=== PATIENT | male | born 1995 | race Caucasian/White ===

== ENCOUNTER → 2021-11-07 | Outpatient (CLI) | payer BC ==
--- NOTE | 2021-11-07 13:45 | Diagnostic Imaging Report ---
PROCEDURE: US Scrotum. TECHNIQUE: Multiple real-time grayscale images were obtained over the scrotum in various projections bilaterally. INDICATION: Testicular pain. FINDINGS: Right testicle measures 5.1 x 2.0 x 3.0 cm, and the left testicle measures 5.1 x 2.4 x 2.9 cm. Both testes show fairly homogeneous echotexture. No discrete testicular mass is identified. There is blood flow to both testes. Right epididymal head contains two small cysts, largest 5 mm in size. Left epididymis is unremarkable apart from approximately 6 mm cyst in the region of the tail. Trace left hydrocele is noted. No right-sided hydrocele is seen. There is no varicocele. IMPRESSION: 1. No evidence of testicular mass or vascular compromise. 2. Small epididymal cysts bilaterally as well as a small left hydrocele. The study is otherwise unremarkable. Dictated by: Dictated on workstation # [id number]
== END ==
LOC: RAD 12:08
PROVIDERS: ATTEND Nurse Practitioner Family
DX: N50.3 Cyst of epididymis (principal); N43.3 Hydrocele, unspecified
CPT/HCPCS: 76870

== ENCOUNTER → 2021-11-13 | Outpatient (CLI) | payer BC ==
--- NOTE | 2021-11-13 09:10 | Diagnostic Imaging Report ---
PROCEDURE: US Gallbladder. TECHNIQUE: Multiple real-time grayscale images were obtained over the right upper quadrant in various projections. INDICATION: Right upper quadrant abdominal pain FINDINGS: Grayscale imaging of the gallbladder reveals no intraluminal filling defect. There is no gallbladder wall thickening or pericholecystic fluid. No intra or extrahepatic biliary ductal dilatation is identified. No pancreatic, right renal, abdominal aortic or inferior vena caval abnormality is documented. No ascites was noted. IMPRESSION: Unremarkable right upper quadrant abdominal ultrasound. Dictated by: Dictated on workstation # [id number]
== END ==
LOC: RAD 07:15
PROVIDERS: ATTEND Family Medicine
DX: R10.11 Right upper quadrant pain (principal)
CPT/HCPCS: 76705

== ENCOUNTER → 2021-11-23 | Outpatient (CLI) | payer BC ==
[~2021-11-23] MED LIST: CATHETER FLUSH 10 ML SYR IV PRN
--- NOTE | 2021-11-23 12:21 | Diagnostic Imaging Report ---
RADIOPHARMACEUTICAL: 5.41 mCi Tc-99m Choletec IV INDICATION: Right upper quadrant abdominal pain TECHNIQUE: Anterior dynamic imaging for 1 hour. Additional 60 minutes of imaging was performed after the patient ingested an 8 ounce can of Ensure. FINDINGS: There is homogenous uptake throughout the liver. The gallbladder is visualized at 40minutes and small bowel at 15minutes. After ingesting an 8 ounce can of Ensure, there is abnormally low gallbladder ejection fraction which is calculated to be 7.7%. IMPRESSION: 1. No evidence of acute cholecystitis or common duct obstruction. 2. Abnormally low GBEF of 7.7%. This can be seen with underlying biliary dyskinesia versus chronic acalculous cholecystitis. Dictated by: Dictated on workstation # [id number]
== END ==
LOC: CARD 10:00
PROVIDERS: ATTEND Family Medicine
DX: R10.11 Right upper quadrant pain (principal)
CPT/HCPCS: 78227; A9537

== ENCOUNTER 2021-12-04 11:33 | Outpatient (CLI) | payer BC ==
[~2021-12-04] VITALS: Ht 175.3 cm; Wt 74.0 kg
[2021-12-04] MEDS ORDERED: FINA1TAB16 PO (11:54)
[2021-12-06] MEDS ORDERED: ACHD5005 PO (11:04)
== END 2021-12-04 12:23 | disposition home or self-care (01) ==
LOC: PREOP 11:33
PROVIDERS: ATTEND Surgery
DX: Z01.818 Encounter for other preprocedural examination (principal)

== ENCOUNTER 2021-12-06 08:11 | Day surgery (SDC) | payer BC ==
[~2021-12-06] VITALS: Ht 175.3 cm; Wt 74.0 kg
[2021-12-06] VITALS (12 sets, daily range): BP systolic 112–137; BP diastolic 66–97
[~2021-12-06 08:11] MED LIST changes: -CATHETER FLUSH 10 ML SYR IV PRN; +FINA1TAB16 PO
--- NOTE | 2021-12-06 08:24 | Progress Note-Pre Operative ---
Pre-Operative Progress Note H&P Reviewed The H&P was reviewed, patient examined and no changes noted. Time Seen by Provider: 08:23 Date H&P Reviewed: Dec 06, 2021 Time H&P Reviewed: 08:23 Pre-Operative Diagnosis: Biliary Dyskinesia GONZALO SANTILLAN DO Dec 06, 2021 08:24
[2021-12-06] MEDS: LACTATED RINGERS 1,000 ML IV PRN ×2 (08:48→10:40)
[2021-12-06] MEDS ORDERED: ceFAZolin 2 GM IV Premixed 50 ML ONE (08:49)
[2021-12-06] MEDS ORDERED: ROCURONIUM 10 MG/ML 5 ML SYRINGE IV ONE (09:12)
[2021-12-06] MEDS ORDERED: SEVOFLURANE (ULTANE) 15 ML INHAL SOLN ONE ×2 (09:12→10:58)
[2021-12-06] MEDS ORDERED: LIDOCAINE PF 2% 5 ML (XYLOCAINE) VIAL ONE (09:12)
[2021-12-06] MEDS ORDERED: fentaNYL INJ 100 MCG/2 ML AMP ONE (09:12)
[2021-12-06] MEDS ORDERED: MIDAZOLAM 2 MG/2 ML (VERSED) VIAL ONE (09:12)
[2021-12-06] MEDS ORDERED: proPOfol 200 MG/20 ML (DIPRIVAN) VIAL IV ONE (09:12)
[2021-12-06] MEDS ORDERED: FAMOTIDINE 20MG/2ML IV (PEPCID) IV ONE (09:15)
[2021-12-06] MEDS ORDERED: ONDANSETRON 4 MG/2 ML (SDV) Z0FRAN IV ONE (09:15)
[2021-12-06] MEDS ORDERED: ONDANSETRON 4 MG/2 ML (SDV) Z0FRAN ONE (09:23)
[2021-12-06] MEDS ORDERED: FAMOTIDINE 20MG/2ML IV (PEPCID) ONE (09:23)
[2021-12-06] MEDS ORDERED: ceFAZolin 2 GM IV Premixed 50 ML IV ONE (09:30)
[2021-12-06] MEDS ORDERED: LIDOCAINE/EPI 1%-1:200,000 (XYLOCAINE) 30 ML VIAL ONE (09:53)
[2021-12-06] MEDS ORDERED: morphine INJ 10 MG/ML 1ML (SYR OR VIAL) ONE (10:55)
[2021-12-06] MEDS ORDERED: NEOSTIGMINE 3 MG/3 ML VIAL ONE (10:56)
[2021-12-06] MEDS ORDERED: GLYCOPYRROLATE 0.2 MG/ML (ROBINUL) 2 ML VIAL ONE (10:56)
[2021-12-06] MEDS ORDERED: ACHD5005 PO (11:04)
--- NOTE | 2021-12-06 11:04 | Progress Note-Post Operative ---
Post-Operative Progess Note Surgeon (s)/Assembly Line Upholsterer (s) Surgeon GONZALO SANTILLAN DO Assembly Line Upholsterer: Mer Pre-Operative Diagnosis Biliary Dyskinesia Post-Operative Diagnosis same plus small right inguinal hernia Procedure & Operative Findings Date of Procedure 12/06/21 Procedure Performed/Findings PROCEDURE: Laparoscopic cholecystectomy with intraoperative cholangiogram. COMPLICATIONS: None. PROCEDURE: The patient was taken to the operating suite and was prepped and draped in sterile fashion. A surgical pause was performed. Just superior to the umbilicus, a 12 mm incision was made. Dissection was taken down to the fascia, which was then scored and grasped with a Vanessa and the abdomen was then entered. A 0 Vicryl suture was placed in a jmtogo-pm-efidu fashion and a Brian trocar was placed and secured. Pneumoperitoneum was achieved. A 5mm trochar place in the subxyphoid and 2 in the right upper quadrant. The gallbladder was noted to be very intrahepatic and there were adhesions from the omentum; these were taken down with bovie cautery. The gallbadder had been grasped at the fundus and elevated in the superior direction. Then started dissectin out the cystic duct and cystic artery; short cystic duct seen right next to common hepatic duct. Clip was placed on the distal portion of the cystic duct which was then partially transected. An arrow catheter was inserted into the duct. The cholangiogram was then performed. No filling defects and contrast made its way into the duodenum. Catheter removed and clips were placed on proximal portion of the cystic duct and then the duct was then transected. Clips had already been placed along the proximal and distal portion of the cystic artery which was then transected. Hook cautery was used to dissect the gallbladder from the gallbladder fossa achieving hemostasis. The gallbladder was placed in an Endobag and removed through the 12 mm trocar site. The abdomen was then reinspected. Copious amounts of irrigation were used to irrigate the abdomen and there were no signs of active bleeding. Hemostasis had been achieved. Had looked during the initial part of the surgery and saw an indirect inguinal hernia. The 12 mm fascial defect was then closed with 0 Vicryl suture that had been placed in a owmnqg-il-eshju fashion. The abdomen was then desufflated, the trocars were removed. The abdomen was then washed and dried. The skin was then closed using 4-0 Monocryl in a subcuticular fashion. The abdomen was washed and dried and Skin Affix was place over incisions. Patient tolerated the procedure well without any complications and was taken to the recovery room in stable condition. Dr. Del Angel assisted on this helping to make incisions, close incisions, identify anatomy and hold anatomy out of the way. Anesthesia Type GET Estimated Blood Loss Estimated blood loss (mL): scant Specimens/Packing Specimens Removed GB and contents GONZALO SANTILLAN DO Dec 06, 2021 11:04
--- NOTE | 2021-12-06 11:06 | Discharge Inst-Surgical ---
Discharge Inst-Surgical Depart Medication/Instructions New, Converted or Re-Newed RX: Transmitted to Pharmacy Patient Instructions Follow up Appt: Make appointment for 1 week. [phone] Instructions: No lifting greater than 20 pounds. No strenuous activity. May shower in 24 hours, no tub bath or soaking. Use incentive spirometer at home as directed. No Smoking Skin/Wound Care: May remove bandages in am. You need to leave the Dermabond on incision it will fall off on it's own. Symptoms to Report: Appetite Changes, Extremity Discoloration, Numbness/Tingling, Swelling Increased, Bleeding Excessive, Eyesight Changes, Pain Increased, Urine Color Change, Constipation(Persistent), Fever over 101 degree F, Pain/Pressure in chest, Urinating Difficulty, Cough Up/Vomit Blood, Heart Beat Irreg/Pounding, Pain/Pressure in jaw, Cramps in feet or legs, Lightheadedness, Pain/Pressure in shoulder, Diarrhea(Persistent), Memory Changes Suddenly, Questions/Concerns, Weight gain consecutive days, Dizziness/Fainting, Nausea/Vomiting, Shortness of Breath, Weight gain over 2 pounds If questions or concerns contact your physician Or seek help at emergency department. Activity Activity as Tolerated: Yes Activity Instructions: Avoid Stress to Incision Driving Instructions: No Driving/Refer to Dr. Tom Discharge Diet: Avoid Fatty Foods, Low Fat/Low Cholesterol Diet After 24 Hours: Clear Liquid if Nauseous If Any Problems/Questions/Issu: Contact Your Physician, Go to Emergency Room Skin/Wound Care Infection Signs and Symptoms: Increased Redness, Foul Odor of Wound, Increased Drainage, Skin Itchy or Has a Rash, Increased Swelling, Temperature Above 101 F Wound Care Comment: heating pad to shoulder or neck tonight for pain Bathing Instructions: Shower Stitches/Coby/Dermabond Dis: Dermabond Ice Pack: Ice On and Off Site GONZALO SANTILLAN DO Dec 06, 2021 11:06
--- NOTE | 2021-12-06 11:19 | Anesthesia-General Post-Op ---
General Patient Condition Mental Status/LOC: Same as Preop Cardiovascular: Satisfactory Nausea/Vomiting: Absent Respiratory: Satisfactory Pain: Controlled Complications: Absent Post Op Complications Complications None Follow Up Care/Instructions Patient Instructions None needed. Anesthesia/Patient Condition Patient Condition Patient is doing well, no complaints, stable vital signs, no apparent adverse anesthesia problems. No complications reported per nursing. WILLIAM BAUTISTA CRNA Dec 06, 2021 11:19
[2021-12-06] MEDS ORDERED: morphine INJ 10 MG/ML 1ML (SYR OR VIAL) IVP ONE (11:30)
[2021-12-06] MEDS ORDERED: fentaNYL INJ 100 MCG/2 ML AMP IVP ONE (11:30)
[2021-12-06] MEDS ORDERED: MEPERIDINE (DEMEROL) INJ 50 MG/ML IVP ONE (11:30)
[2021-12-06] MEDS ORDERED: ONDANSETRON 4 MG/2 ML (SDV) Z0FRAN IVP PRN (11:30)
[2021-12-06] MEDS ORDERED: HYDROcodone/APAP 5 MG/325 MG (LORTAB) TAB ONE (12:21)
[2021-12-06] MEDS ORDERED: HYDROcodone/APAP 5 MG/325 MG (LORTAB) TAB PO ONE (12:30)
--- NOTE | 2021-12-06 13:07 | Diagnostic Imaging Report ---
INDICATION: Abdominal pain IMPRESSION: 2 minutes 12 seconds fluoroscopy and 72 intraoperative digital images were used in surgery by Dr. Venegas during a laparoscopic cholecystectomy. Images show contrast passing through the common duct into the duodenum. Dictated by: Dictated on workstation # [id number]
== END 2021-12-06 13:20 ==
LOC: SDC 08:11
PROVIDERS: ATTEND Surgery
DX: K81.1 Chronic cholecystitis (principal); K82.8 Other specified diseases of gallbladder; K66.9 Disorder of peritoneum, unspecified; F17.210 Nicotine dependence, cigarettes, uncomplicated; Z79.899 Other long term (current) drug therapy; Z90.89 Acquired absence of other organs; Z80.3 Family history of malignant neoplasm of breast; Z80.8 Family history of malignant neoplasm of other organs or systems
CPT/HCPCS: 76000; 87081; 88304

== ENCOUNTER → 2022-03-22 | Outpatient (CLI) | payer BC ==
[~2022-03-22] MED LIST changes: +ACHD5005 PO
--- NOTE | 2022-03-22 16:10 | Diagnostic Imaging Report ---
INDICATION: Neck pain COMPARISON: None FINDINGS: Frontal, lateral, and odontoid views of the cervical spine were submitted. The cervical spine is visualized up to the C7/T1 level on the lateral projection. There is normal vertebral height and alignment. There is no evidence of fracture or bone destruction. No prevertebral soft tissue swelling is seen. No significant degenerative changes are noted. The open-mouth view demonstrates normal C1/C2 alignment. IMPRESSION: 1. Normal cervical spine series. Dictated by: Dictated on workstation # [id number]
== END ==
LOC: RAD 15:31
PROVIDERS: ATTEND Family Medicine
DX: M54.2 Cervicalgia (principal)
CPT/HCPCS: 72040

== ENCOUNTER 2022-04-05 15:58 | Emergency (ER) | payer BC ==
[~2022-04-05] VITALS: Ht 177.8 cm; Wt 72.5 kg
--- NOTE | 2022-04-05 16:36 | ED General ---
General Chief Complaint: General Problems/Pain Stated Complaint: NECK AND BACK PAIN Nursing Triage Note: PT AMB TO [facility] 5 WITH COMPLAINT OF NECK AND BACK PAIN FOR MONTHS. DESCRIBES A DULL ACHE. Source of Information: Patient Exam Limitations: No Limitations History of Present Illness Date Seen by Provider: April 05, 2022 Time Seen by Provider: 16:15 Initial Comments Patient is a 26-year-old male who presents to the emergency department today with a chief complaint of left subscapular pain and bilateral neck pain around the area of the sternocleidomastoid muscles. He states this pain has been going on for at least 3 months. He states it is constant and unrelenting. Nothing really makes it any worse. He has tried yfiz-bdl-uqaflsh roll-on Biofreeze as well as heating pads and naproxen. He seen his primary care physician, . He prescribed the naproxen and then subsequently did neck x-rays. He has not seen him since the x-rays. He has been to a chiropractor and that has not helped him. He works as a electric welder helper. He is still able to perform his job duties. He denies shortness of breath. He has not had any rashes joint pain or swelling. No fevers chills. No chest pain. No traumas that he can think of. He states the pain is a "dull ache" and always present. It never goes away. He is concerned because he has a significant past family medical history of young coronary artery disease as well as cancers. He finally admits that he is here "seeking a second opinion". And he is also "tired of the pain". He does tell me his mother has a history of fibromyalgia. He did say that he had routine lab work done 2-3 weeks ago that was "normal" All other review of systems reviewed and negative except as stated Timing/Duration: Other (3 months) Severity: Moderate Associated Systoms: Denies Symptoms Allergies and Home Medications Allergies Coded Allergies: amoxicillin (Verified Allergy, Unknown, Hives, 12/04/21) clindamycin (Verified Allergy, Unknown, Hives, 12/06/21) Patient Home Medication List Home Medication List Reviewed: Yes Finasteride (Finasteride) 1 Mg Tablet, 1 MG PO DAILY, (Reported) Entered as Reported by: IAN HOLMAN on 12/04/21 1154 Hydrocodone Bit/Acetaminophen (HYDROcodone/APAP 5 MG/325 MG TAB) 1 Tab Tab, 1 TAB PO Q8H PRN for PAIN-MODERATE (5-7) Prescribed by: GONZALO SANTILLAN on 12/06/21 1105 Review of Systems Review of Systems Constitutional: see HPI EENTM: no symptoms reported Respiratory: no symptoms reported Cardiovascular: no symptoms reported Gastrointestinal: no symptoms reported Genitourinary: no symptoms reported, other (no changes in urination/brown urine) Musculoskeletal: other (left subscapular pain; bilateral anterior neck pain) Skin: no symptoms reported Psychiatric/Neurological: Anxiety Hematologic/Lymphatic: No Symptoms Reported, Other (no night sweats, unintentional weight gain or loss; no heat or cold intolerance.) All Other Systems Reviewed Negative Unless Noted: Yes Past Ytabyvj-Ugjkvx-Hhcxvv Hx Patient Social History Tobacco Use?: No Smoking Status: Never a Smoker Substance use?: Yes Substance type: Marijuana Alcohol Use?: Yes Alcohol Frequency: Once in a while Pt feels they are or have been: No Immunizations Up To Date First/Initial COVID19 Vaccinat: yes Second COVID19 Vaccination Papi: yes Third COVID19 Vaccination Date: yes Seasonal Allergies Seasonal Allergies: No Past Medical History Surgeries: Yes Appendectomy, Tonsillectomy Respiratory: No Currently Using CPAP: No Currently Using BIPAP: No Cardiac: No Neurological: No Genitourinary: No Gastrointestinal: Yes Gall Bladder Disease Musculoskeletal: No Endocrine: No HEENT: No Cancer: No Psychosocial: No Integumentary: No Blood Disorders: No Physical Exam Vital Signs Vital Signs - First Documented 04/05/22 16:08 Temp 35.7 Pulse 86 Resp 14 B/P (MAP) 141/95 (110) Pulse Ox 99 O2 Delivery Room Air Capillary Refill : Less Than 3 Seconds Height, Weight, BMI Height: '" Weight: lbs. oz. kg; 22.00 BMI Method: General Appearance: No Apparent Distress, WD/WN Eyes: Bilateral Eye Normal Inspection, Bilateral Eye PERRL, Bilateral Eye EOMI HEENT: PERRL/EOMI Neck: Full Range of Motion, Normal Inspection, Non Tender, Supple, Other (no reproducible tenderness over the muscles in the neck - over the SCMs bilaterally. no thyroid abnormalities noted) Respiratory: Chest Non Tender, Lungs Clear, Normal Breath Sounds, No Accessory Muscle Use, No Respiratory Distress Cardiovascular: Regular Rate, Rhythm, Normal Peripheral Pulses Back: Normal Inspection, No CVA Tenderness, No Vertebral Tenderness, Other (no tenderness that is able to be elicited over the area of concern in the back - under the scapula on the left. no percussive tenderness to the thoracic spine. no overlying skin changes) Extremity: Normal Capillary Refill, Normal Inspection, Normal Range of Motion, Non Tender Neurologic/Psychiatric: Alert, Oriented x3, No Motor/Sensory Deficits, Normal Mood/Affect, waste chopper II-XII Norm as Tested Skin: Normal Color, Warm/Dry Lymphatic: No Adenopathy (no LAD in the axillae bilaterally, no suboccipital nodes, no submandibular nodes) Progress/Results/Core Measures Suspected Sepsis SIRS Temperature: Pulse: 86 Respiratory Rate: 14 Blood Pressure 141 /95 Mean: 110 Results/Orders Vital Signs/I&O 04/05/22 16:08 Temp 35.7 Pulse 86 Resp 14 B/P (MAP) 141/95 (110) Pulse Ox 99 O2 Delivery Room Air Capillary Refill : Less Than 3 Seconds Blood Pressure Mean: 110 Progress Note : Time: 16:43 Progress Note I talked to Matt about supportive care and over the counter treatments as well as stretching exercises to help with pain. Encouraged hydration as well as follow up with his PCP. No concerning findings on physical examination to wa rrant further work up in the ED. His xray is perfect. All questions are sought and answered. I did give him 3 days of toradol to try for the pain. Departure Impression Primary Impression: Myalgia of muscle of neck Disposition: 01 HOME, SELF-CARE Condition: Stable Departure-Patient Inst. Decision time for Depature: 16:38 Referrals: KRISHNA GARCÍA MD (PCP/Family) Primary Care Physician Patient Instructions: Muscle and Bone Pain (DC) Add. Discharge Instructions: Drink lots of water while taking the Ketoralac because it is broken down in the kidneys. Take it every 8 hours as needed. Continue to alternate ice and heat for pain as needed. You can try over the counter lidocaine patches - these are available over the counter at your pharmacy. Follow packaging instructions. Keep regular follow ups with your doctor to help further evaluate the source of your pain. Gentle stretching exercises may also help with the pain. Return to the Emergency Department for any new, emergent or concerning symptoms. Scripts Ketorolac Tromethamine (Ketorolac Tromethamine) 10 Mg Tablet 10 MG PO Q8H PRN for PAIN-MODERATE (5-7) for 3 Days, #9 TAB Prov: MIHAI CARMEN MD 04/05/22 Copy Copies To 1: KRISHNA GARÍCA MD, KATHRYN M MD April 05, 2022 16:36
[2022-04-05] MEDS ORDERED: KETO10TA PO (16:40)
--- NOTE | 2022-04-05 16:48 | Diagnostic Imaging Report ---
INDICATION: left sided back pain COMPARISON: None. FINDINGS: Frontal and lateral views of the chest demonstrate normal heart size and pulmonary vascularity. The lungs are clear. There are no signs of infiltrate, pleural effusions or pneumothoraces. The visualized osseous structures show no acute abnormalities. IMPRESSION: 1. No acute process. No signs of infiltrates, effusions or pneumothoraces. Dictated by: Dictated on workstation # [id number]
[2022-04-05 16:52] VITALS: BP 141/95
== END 2022-04-05 16:52 | disposition home or self-care (01) ==
LOC: EDUNIT# 15:58 → ER 15:59
DX: M79.18 Myalgia, other site (principal); Z82.69 Family history of other diseases of the musculoskeletal system and connective tissue
CPT/HCPCS: 71046

== ENCOUNTER 2022-04-25 15:53 | Outpatient (RCR) | payer BC ==
[~2022-04-25 15:53] MED LIST changes: +KETO10TA PO
== END 2022-05-01 | disposition home or self-care (01) ==
PROVIDERS: ATTEND Family Medicine
DX: M54.2 Cervicalgia (principal); R07.9 Chest pain, unspecified; M54.6 Pain in thoracic spine

== ENCOUNTER 2022-05-21 16:10 | Outpatient (RCR) | payer BC | END 2022-05-31 | disposition home or self-care (01) | PROVIDERS: ATTEND Family Medicine | DX: M54.2 Cervicalgia (principal); R07.9 Chest pain, unspecified; M54.6 Pain in thoracic spine ==

== ENCOUNTER → 2022-07-16 | Outpatient (CLI) | payer BC ==
[~2022-07-16] MED LIST changes: +BARIUM for suspension 96% w/w (Vanilla Silq Medium Density) PO ONE; +BARIUM for suspension 98% w/w (Vanilla Silq High Density) PO ONE
--- NOTE | 2022-07-16 13:05 | Diagnostic Imaging Report ---
INDICATION: Difficulty swallowing. Patient ingested effervescent crystals as well as thin and thick barium and imaging of the esophagus, stomach and proximal small bowel was performed. Preliminary radiograph of the abdomen demonstrates surgical clips in the gallbladder fossa. Esophagus has a smooth contour. No mass or stricture is identified. No hiatal hernia or gastroesophageal reflux was demonstrated. Stomach has a normal configuration. There is prompt emptying into the small bowel. The duodenal bulb is without deformity. Visualized small bowel loops are unremarkable. IMPRESSION: Unremarkable upper GI study. Dictated by: Dictated on workstation # [id number]
== END ==
LOC: RAD 10:34
PROVIDERS: ATTEND Family Medicine
DX: R05.3 Chronic cough (principal); R06.00 Dyspnea, unspecified; R13.10 Dysphagia, unspecified
CPT/HCPCS: 74246

== ENCOUNTER → 2022-12-13 | Outpatient (CLI) | payer BC ==
[~2022-12-13] MED LIST changes: -BARIUM for suspension 96% w/w (Vanilla Silq Medium Density) PO ONE; -BARIUM for suspension 98% w/w (Vanilla Silq High Density) PO ONE
--- NOTE | 2022-12-13 16:17 | Diagnostic Imaging Report ---
PROCEDURE: US Thyroid. TECHNIQUE: Multiple real-time grayscale images were obtained of the thyroid in various projections. INDICATION: Nontoxic thyroid nodule. COMPARISON: No prior studies are available for comparison. Right lobe of the thyroid measures 6.4 x 2.2 x 1.6 cm and the left lobe measures 5.9 x 2.0 x 1.6 cm. Isthmus is 5 mm in thickness. Both lobes of thyroid show homogeneous echotexture. No discrete thyroid mass is detected. IMPRESSION: Unremarkable thyroid ultrasound. Dictated by: Dictated on workstation # [id number]
== END ==
LOC: RAD 15:04
PROVIDERS: ATTEND Nurse Practitioner Family
DX: E04.1 Nontoxic single thyroid nodule (principal); L30.8 Other specified dermatitis; R53.83 Other fatigue
CPT/HCPCS: 76536

== ENCOUNTER → 2023-02-01 | Outpatient (CLI) | payer BC ==
[~2023-02-01] MED LIST changes: +HOLD METFORMIN - RECEIVED CONTRAST 20 ML VIAL IV SCH; +IOHEXOL 350 MG/ML 100 ML (OMNIPAQUE 350) VIAL IV ONE; +NS 100 ML (IVPB) BAG IV ONE
--- NOTE | 2023-02-01 17:31 | Diagnostic Imaging Report ---
CLINICAL INDICATIONS: Patient with left-sided constant pressure/pain. EXAM: Axial CT scan of the neck soft tissue performed with 75 mL of Omnipaque 350 IV contrast. Sagittal and coronal reformatted images are created. Auto Exposure Controls were utilized during the CT exam to meet ALARA standards for radiation dose reduction. COMPARISON: None. FINDINGS: The nasopharynx, oropharynx, hypopharynx, and laryngeal soft tissue structures are unremarkable. Visualized portions of the oral cavity, tongue, sublingual and submandibular regions are unremarkable. There is no lymphadenopathy. The salivary glands and thyroid gland are unremarkable. There is no significant abnormality involving the left side of the neck. There is no neck soft tissue fat stranding or fluid collection. There is no bony erosive or destructive process. The visualized upper lung olivia are clear. Limited visualization of the intracranial structures are unremarkable. Orbits and globes are unremarkable. There is mild mucosal thickening involving both maxillary sinuses. Mastoid air cells are clear. Incompletely imaged right curvature of the thoracic spine. Cervical spine shows no significant abnormality. IMPRESSION: 1.: Unremarkable CT scan of the neck soft tissue. 2: There is incompletely imaged right curvature of the thoracic spine. Dictated by: Dictated on workstation # [id number]
== END ==
LOC: RAD 13:10
PROVIDERS: ATTEND Otolaryngology Otolaryngology/Facial Plastic Surgery
DX: M79.12 Myalgia of auxiliary muscles, head and neck (principal)
CPT/HCPCS: 70491